=== PATIENT | female | born 1950 | race Caucasian/White ===

== ENCOUNTER → 2016-11-07 | Outpatient (CLI) | payer MEDICARE, OTHER ==
[~2016-11-07] MED LIST: ASPIRIN 32325 MG/TAB PO; LIPITOR 10MG10 MG PO; TIMOPTIC 0.25%-10 OU
== END ==
LOC: MC.RAD 08:52
DX: Z12.31 Encounter for screening mammogram for malignant neoplasm of breast (principal)

== ENCOUNTER 2017-02-16 20:05 | Day surgery (SDC) | payer MEDICARE, OTHER ==
[~2017-02-16] VITALS: Ht 167.6 cm; Wt 68.0 kg
[2017-02-16] MEDS ORDERED: LIPITOR 10MG10 MG PO (20:31)
[2017-02-16] MEDS ORDERED: TIMOPTIC 0.25%-10 OU (20:32)
[2017-02-16] MEDS ORDERED: ASPIRIN 32325 MG/TAB PO (20:33)
[2017-02-16 20:47] VITALS: BP 146/64; PULSE 66; TEMP 97.9
[2017-02-16 21:50] VITALS: BP 152/67; PULSE 62; TEMP 98
[2017-02-16 22:05] VITALS: BP 149/66; PULSE 60; TEMP 98.3
[2017-02-16 22:20] VITALS: BP 138/59; PULSE 60; TEMP 98
[2017-02-16 22:35] VITALS: BP 145/66; PULSE 58; TEMP 98
[2017-02-16 23:05] VITALS: BP 149/77; PULSE 64; TEMP 98
== END 2017-02-16 23:24 | disposition home or self-care (01) ==
LOC: SDCO 20:05 → SURG 20:06 → SDCO 23:24
DX: K29.50 Unspecified chronic gastritis without bleeding (principal); K21.0 Gastro-esophageal reflux disease with esophagitis; R13.12 Dysphagia, oropharyngeal phase
CPT/HCPCS: OP; J2250; J2405; J3010; J7030

== ENCOUNTER → 2017-10-14 | Outpatient (CLI) | payer MEDICARE, OTHER | LOC: COL.VAS 13:51 | DX: I65.23 Occlusion and stenosis of bilateral carotid arteries (principal); E78.5 Hyperlipidemia, unspecified; Z86.73 Personal history of transient ischemic attack (TIA), and cerebral infarction without residual deficits ==

== ENCOUNTER → 2017-12-31 | Outpatient (CLI) | payer MEDICARE, OTHER | LOC: MC.RAD 10:49 | DX: Z12.31 Encounter for screening mammogram for malignant neoplasm of breast (principal) ==

== ENCOUNTER 2018-06-20 07:19 | Day surgery (SDC) | payer MEDICARE, OTHER ==
[~2018-06-20] VITALS: Ht 170.2 cm; Wt 67.1 kg
[2018-06-20] MEDS ORDERED: ZANTAC 300300 MG PO (07:51)
[2018-06-20 08:01] VITALS: BP 119/68; PULSE 66; TEMP 98.7
[2018-06-20 09:30] VITALS: BP 129/63; PULSE 56; TEMP 97.1
[2018-06-20 09:45] VITALS: BP 113/58; PULSE 51
[2018-06-20 10:00] VITALS: BP 108/80; PULSE 56
[2018-06-20 10:15] VITALS: BP 112/58; PULSE 50
== END 2018-06-20 10:30 | disposition home or self-care (01) ==
LOC: SDCO 07:19
DX: Z12.11 Encounter for screening for malignant neoplasm of colon (principal)
CPT/HCPCS: OP; J2250; J2405; J3010; J7030

== ENCOUNTER → 2019-01-27 | Outpatient (CLI) | payer MEDICARE, OTHER ==
[~2019-01-27] MED LIST changes: +ZANTAC 300300 MG PO
== END ==
LOC: MC.RAD 11:01
DX: Z12.31 Encounter for screening mammogram for malignant neoplasm of breast (principal)

== ENCOUNTER → 2019-06-03 | Outpatient (CLI) | payer MEDICARE, OTHER | LOC: COL.RAD 10:16 | DX: E83.52 Hypercalcemia (principal) | CPT/HCPCS: A9500 ==

== ENCOUNTER 2019-08-06 09:45 | Outpatient (RCR) | payer MEDICARE, OTHER ==
[~2019-08-06 09:45] MED LIST changes: +ASPI325T6 PO; +COZAAR 50MG50 MG/TAB PO; +MAGNESIUM250 M1 PO; +MULTI VITAMINS1 TAB PO; +NORCO 325 MG-51 TAB PO; +PRESERVISION1 SGL PO; +SENOKOT S 50 MG1 TAB PO; +VITAMIN B COMPL1 SGL PO; +VITAMIN C500 MG PO; +ZOFRAN ODT4 MG PO
== END 2019-08-25 13:36 | disposition home or self-care (01) ==
LOC: WSPT 09:45
DX: S72.002A Fracture of unspecified part of neck of left femur, initial encounter for closed fracture (principal); Z96.642 Presence of left artificial hip joint

== ENCOUNTER → 2020-04-15 | Outpatient (CLI) | payer MEDICARE, OTHER | LOC: MC.RAD 14:20 | DX: Z12.31 Encounter for screening mammogram for malignant neoplasm of breast (principal) ==

== ENCOUNTER 2022-08-24 10:06 | Outpatient (RCR) | payer MEDICARE, OTHER | END 2022-08-27 | disposition home or self-care (01) | LOC: WSPT | DX: R26.81 Unsteadiness on feet (principal) ==

== ENCOUNTER 2024-06-16 07:07 | Day surgery (SDC) | payer MEDICARE ==
[~2024-06-16] VITALS: Ht 170.2 cm; Wt 67.2 kg
[~2024-06-16 07:07] MED LIST changes: +LR 1,000 ML IV SCH; +Ondansetron 4 MG/2 ML VIAL IV PRN
[2024-06-16 07:30] VITALS: BP 141/78; PULSE 71; TEMP 98.1
[2024-06-16] MEDS ORDERED: PRILOSEC 20MG20 MG PO (07:38)
[2024-06-16] MEDS ORDERED: VITAMIN D3400 I1 PO (07:41)
[2024-06-16] MEDS ORDERED: XALATAN EYE DROPS OD (07:42)
[2024-06-16] MEDS ORDERED: Succinylcholine PF 200 MG/10 ML SYRINGE IV ONE (08:06)
[2024-06-16] MEDS ORDERED: Lidocaine PF 2% (20 MG/ML) 5 ML VIAL ONE (08:15)
[2024-06-16 09:15] VITALS: BP 137/78; PULSE 84; TEMP 98
[2024-06-16 09:30] VITALS: BP 142/85; PULSE 62
[2024-06-16 09:45] VITALS: BP 144/73; PULSE 64
--- NOTE | 2024-06-16 10:00 | NUR ---
0915 RETURNS TO ROOM 3 PER CART. AWAKE, ALERT, RESP UNLABORED. AMBULATES TO RECLINER WITH STANDBY ASSIST. DENIES NAUSEA, ABD/CHEST PAIN OR DYSPHAGIA. VITAL SIGNS OBTAINED. CALL LIGHT AT SIDE. IN ROOM 0922 DR. MAZARIEGOS HERE TO VISIT WITH PATIENT 0935 TOL[address] PO JUICE WITHOUT NAUSEA. SWALLOWS WITHOUT DIFFICULTY. DISCHARGE INSTRUCTIONS REVIEWED, PATIENT VERBALIZES UNDERSTANDING. COPY PROVIDED IN DISCHARGE FOLDER [id number] DRESSES SELF
--- NOTE | 2024-06-16 10:01 | NUR ---
0800: PT HAS HISTORY OF NAUSEA AND VOMITING AFTER PROCEDURE. NICHOLAS HANKINS NOTIFIED. INSTRUCTED TO GIVE ZOFRAN 4MG PRE-OP. GIVEN ORDERED.
== END 2024-06-16 10:05 | disposition home or self-care (01) ==
LOC: SDCO 07:07
DX: K63.5 Polyp of colon (principal); K31.7 Polyp of stomach and duodenum; K29.50 Unspecified chronic gastritis without bleeding; R63.0 Anorexia; K31.89 Other diseases of stomach and duodenum; K57.30 Diverticulosis of large intestine without perforation or abscess without bleeding; D50.9 Iron deficiency anemia, unspecified; K21.9 Gastro-esophageal reflux disease without esophagitis; R19.7 Diarrhea, unspecified; R63.4 Abnormal weight loss; R19.5 Other fecal abnormalities; R84.8 Other abnormal findings in specimens from respiratory organs and thorax; R79.82 Elevated C-reactive protein (CRP); Z79.899 Other long term (current) drug therapy; Z79.82 Long term (current) use of aspirin; Z88.4 Allergy status to anesthetic agent
CPT/HCPCS: J2405; J2704; J7120

== ENCOUNTER → 2024-07-16 | Outpatient (CLI) | payer MEDICARE, OTHER ==
[~2024-07-16] MED LIST changes: -LR 1,000 ML IV SCH; -Ondansetron 4 MG/2 ML VIAL IV PRN; +PRILOSEC 20MG20 MG PO; +VITAMIN D3400 I1 PO; +XALATAN EYE DROPS OD
== END ==
LOC: COL.RAD 08:31
DX: D50.9 Iron deficiency anemia, unspecified (principal); R19.5 Other fecal abnormalities